=== PATIENT | female | born 1980 | race Caucasian/White ===

== ENCOUNTER 2021-07-06 08:08 | Day surgery (SDC) | payer OTHER ==
[2021-07-06] MEDS ORDERED: CILOXAN5 ML OTIC (16:43)
[2021-07-06] MEDS ORDERED: CEPHALEXIN500 M1 PO (16:43)
== END 2021-07-06 19:15 | disposition home or self-care (01) ==
LOC: CIR.AMB 08:08
PROVIDERS: ATTEND Otolaryngology Otology & Neurotology
DX: H72.02 Central perforation of tympanic membrane, left ear (principal); H90.12 Conductive hearing loss, unilateral, left ear, with unrestricted hearing on the contralateral side; H92.12 Otorrhea, left ear; J45.909 Unspecified asthma, uncomplicated; F41.9 Anxiety disorder, unspecified; E66.9 Obesity, unspecified; Z20.822 Contact with and (suspected) exposure to COVID-19